=== PATIENT | male | born 1975 | race Caucasian/White ===

== ENCOUNTER → 2020-04-26 | Outpatient (CLI) | payer OTHER | LOC: M.RAD 10:00 | PROVIDERS: ATTEND Orthopaedic Surgery | DX: M16.11 Unilateral primary osteoarthritis, right hip (principal); M24.151 Other articular cartilage disorders, right hip; M67.853 Other specified disorders of tendon, right hip; Z79.899 Other long term (current) drug therapy; Z98.890 Other specified postprocedural states ==